=== PATIENT | male | born 1995 | race Hispanic/Latino ===

== ENCOUNTER 2018-02-12 22:01 | Emergency (ER) | payer BC, SELFPAY ==
[2018-02-12] MEDS ORDERED: AMOX/K CLAV 875 MG TAB ONE (23:00)
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
--- NOTE | 2018-02-13 09:45 | RAD REPORT ---
EXAM DESCRIPTION: RAD - Hand Right 3 View - 02/12/2018 11:55 pm CLINICAL HISTORY: PAIN COMPARISON: Hand Right 3 View dated 08/01/2016 FINDINGS: No bone or joint abnormality is detected.
== END 2018-02-13 00:08 | disposition home or self-care (01) ==
LOC: ER 22:01
DX: S63.681A Other sprain of right thumb, initial encounter (principal); L03.113 Cellulitis of right upper limb; Y04.1XXA Assault by human bite, initial encounter
CPT/HCPCS: 99284